=== PATIENT | male | born 1935 | race Caucasian/White ===

== ENCOUNTER 2019-12-13 13:14 | Inpatient (IN) | payer OTHER, MEDICAID ==
[~2019-12-13] VITALS: Ht 162.6 cm; Wt 102.1 kg
[~2019-12-13 13:14] MED LIST: AMIO200T PO; ASPI-1155 PO; BENZ-16 PO; DICL50TA9 PO; FURO-149 PO; GABA-531 PO; GLIP5TAB13 PO; HYDR-3908 PO; LANS30CA53 PO; LOVA40TA75 PO; LUBI24CA5 PO; MECL25TA3 PO; METF-379 PO; METO50TA7 PO; PROP1TAB3 PO; VALS160T2 PO
[2019-12-13 14:12] VITALS: BP_SYST 133
--- NOTE | 2019-12-13 14:25 | NUR ---
Patient triaged and placed in waiting room. VSS and patient appears in no acute distress at this time. Accompanied by daughter and grandson, awaiting available bed, and MD notified of need for MSE.
[2019-12-13 15:05] LABS: BASOPHILS % (AUTO) 0.4 % (0.0-2.0); EOSINOPHILS # (AUTO) 0.2 K/uL (0.0-0.4); EOSINOPHILS % (AUTO) 3.1 % (0.0-4.0); HEMATOCRIT 41.1 % (36-54); HEMOGLOBIN 13.8 g/dL (14.0-18.0); LYMPHOCYTES # (AUTO) 1.9 K/uL (1.0-5.5); LYMPHOCYTES % (AUTO) 29.1 % (20.5-51.5); MEAN CORPUSCULAR HEMOGLOBIN 31 pg (27-31); MEAN CORPUSCULAR HGB CONC 34 % (32-36); MEAN CORPUSCULAR VOLUME 91 fL (79.0-98.0); MONOCYTES # (AUTO) 0.5 K/uL (0.0-1.0); MONOCYTES % (AUTO) 8.2 % (1.7-9.3); NEUTROPHILS # (AUTO) 3.9 K/uL (1.8-7.7); NEUTROPHILS % (AUTO) 59.2 % (40.0-70.0); PLATELET COUNT (AUTO) 82 K/uL (130-430); RED BLOOD CELL COUNT(AUTO) 4.52 MIL/uL (4.2-6.2); RED CELL DISTRIBUTION WIDTH 13.3 % (9.0-15.0); WHITE BLOOD COUNT (AUTO) 6.7 K/uL (4.8-10.8)
[2019-12-13 15:18] LABS: ANION GAP 7 (5-15); CALCIUM 8.9 mg/dL (8.4-11.0); CHLORIDE 101 mmol/L (98-107); CREATININE 0.91 mg/dL (0.55-1.30); GLUCOSE 134 mg/dL (70-99); POTASSIUM 4.3 mmol/L (3.5-5.1); SODIUM SERUM 135 mmol/L (136-145); UREA NITROGEN, BLOOD 21 mg/dL (8-21)
[2019-12-13 15:24] LABS: INR 1.1 (0.80-1.20); PROTHROMBIN TIME 10.9 SECS (9.5-12.5)
[2019-12-13 15:33] LABS: ALANINE AMINOTRANSFERASE 22 U/L (12-78); ALBUMIN 3.5 g/dL (3.4-4.8); ASPARTATE AMINOTRANSFERASE 30 U/L (10-37); TOTAL BILIRUBIN 0.6 mg/dL (0.0-1.0)
--- NOTE | 2019-12-13 18:27 | NUR ---
Patient to ER bed 03 to gown for evaluation. Side rails up. Report given to MILADY Robbins
--- NOTE | 2019-12-13 18:30 | NUR ---
Patient arrived in the ED c/o GENERALIZED WEAKNESS AND HYPOTENSION that started yesterday. Denied any chest pain or shortness of breath. Denied any fevers, chills, vomiting or nausea. Patient is alert and oriented x3, respirations even and unlabored, speaking in full sentences and ambulating using a walker. VSS, pain level 5/10. Son at bedside. Informed of the approximate wait time. Instructed to notify ED staff for any changes in condition or worsening of symptoms while waiting to be seen by a provider. Patient verbalized understanding.
[2019-12-13] MEDS ORDERED: NACL 0.9% 500 ML IV ONE (18:45)
--- NOTE | 2019-12-13 19:01 | NUR ---
ER at bedside examining patient.
--- NOTE | 2019-12-13 19:15 | NUR ---
# 20 gauge angiocath placed to LFA. Use of asceptic technique. Opsite placed over site. Blood return noted. Flushed with 10 cc of normal saline. No evidence of infiltration noted. Patient tolerated well.
[2019-12-13 19:17] LABS: BILIRUBIN,URINE NEGATIVE (NEGATIVE); BLOOD, URINE NEGATIVE (NEGATIVE); CLARITY/URINE CLEAR (CLEAR); COLOR,URINE YELLOW (YELLOW); GLUCOSE,URINE NEGATIVE (NEGATIVE); KETONES,URINE NEGATIVE (NEGATIVE); LEUKOCYTE ESTERASE ,URINE NEGATIVE (NEGATIVE); NITRITE, URINE NEGATIVE (NEGATIVE); PROTEIN URINE NEGATIVE (NEGATIVE); UROBILINOGEN,URINE 0.2 (0.2-1.0)
--- NOTE | 2019-12-13 19:30 | NUR ---
Report given and care transferred to MILADY Sykes.
--- NOTE | 2019-12-13 21:07 | NUR ---
Flu swab obtained. Son at bedside informed of current status. Awaiting chest xray results. patient tolerated well. will continue to monitor.
[2019-12-13] MEDS ORDERED: AMPICILLIN SODIUM/SULBACTAM NA 3 GM in NS 100 ML IV ONE (21:45)
[2019-12-13] MEDS ORDERED: AZITHROMYCIN 500 MG in NS 250 ML IV ONE (21:45)
[2019-12-13] MEDS ORDERED: RESEYE EACH EYE (21:59)
[2019-12-13] MEDS ORDERED: TAMS0.4C96 PO (21:59)
[2019-12-13] MEDS ORDERED: SER25 PO (21:59)
[2019-12-13] MEDS ORDERED: CHOL500037 PO (21:59)
[2019-12-13] MEDS ORDERED: TURM500C9 PO (21:59)
[2019-12-13] MEDS ORDERED: ACET-2634 PO (21:59)
[2019-12-13] MEDS ORDERED: LUBI24CA5 PO ×2 (21:59→22:18)
[2019-12-13] MEDS ORDERED: SIMV40TA2 PO (21:59)
[2019-12-13] MEDS ORDERED: PRO40 PO (21:59)
[2019-12-13] MEDS ORDERED: CYAN250010 PO (21:59)
[2019-12-13] MEDS ORDERED: potassium chloride PO (22:02)
[2019-12-13] MEDS ORDERED: GLUC-236 PO (22:14)
[2019-12-13] MEDS ORDERED: CLOP75TA32 PO (22:14)
[2019-12-13] MEDS ORDERED: MEMA1CAP3 PO (22:14)
[2019-12-13] MEDS ORDERED: FOLI-59 PO (22:14)
[2019-12-13] MEDS ORDERED: lidocaine 5% Patch TD (22:14)
[2019-12-13] MEDS ORDERED: CARB30DR OP (22:18)
[2019-12-13] MEDS ORDERED: DICL100G19 TP (22:18)
[2019-12-13] MEDS ORDERED: OMEG1CAP PO (22:18)
[2019-12-13] MEDS ORDERED: FINA5TAB3 PO (22:18)
--- NOTE | 2019-12-13 22:21 | NUR ---
Medication reconciliation completed with information provided by son. Any prior medication reconciliation on file was reviewed and corrected.
[2019-12-13] MEDS ORDERED: AZITHROMYCIN 500 MG/VIAL (ZITHROMAX) IV ONE (22:40)
[2019-12-13] MEDS ORDERED: AMPICILLIN SODIUM/SULBACTAM NA 3 GM VIAL ONE (22:40)
--- NOTE | 2019-12-13 22:42 | NUR ---
Medicated per MD orders. Patient tolerated well
--- NOTE | 2019-12-13 22:43 | NUR ---
Son states patient is full code
--- NOTE | 2019-12-13 22:47 | NUR ---
Patient will be admitted to care of Dr. Mock. Admitted to Telemetry unit. Will go to room 125 A. Belongings list completed. Complete and up to date summary report printed. SBAR report to be given at bedside with opportunity for questions.
--- NOTE | 2019-12-13 23:19 | NUR ---
Transfer to Telemetry via ACLS protocol. Licensed nurse present. IV present no signs or symptoms of infiltration.
--- NOTE | 2019-12-13 23:30 | NUR ---
ADMIT NOTE Received pt from ER to the floor with a diagnosis of PNEUMONIA. Admission process initiated. Patient oriented to pain management, safety and call light-teach back done.
[2019-12-13 23:42] VITALS: BP_SYST 115
[2019-12-13 23:44] VITALS: BP_SYST 124
--- NOTE | 2019-12-13 23:44 | NUR ---
Daughter visiting Son is leaving. Daughter and grandson arrived and they will be translating for patient, he speaks Bel[place]ian.
--- NOTE | 2019-12-14 00:30 | NUR ---
Assessment Assessment complete, patient provided with water and pudding, his family brought him a baked potato. Posted sign at head of bed indicating "LIME".
--- NOTE | 2019-12-14 01:55 | NUR ---
CPAP Patient presently on CPAP, daughter stepped outside to the parking lot. Safety precautions in place and call light w/in reach.
--- NOTE | 2019-12-14 04:30 | NUR ---
RN rounds daughter remains at bedside. Patient sleeps on/off. No sign of distress, safety precautions in place and call light w/in reach.
[2019-12-14] MEDS ORDERED: ACETAMINOPHEN 500 MG TABLET PO PRN (06:45)
[2019-12-14] MEDS ORDERED: ALBUTEROL SULFATE 0.083% 2.5 MG/3 ML VIAL.NEB INH PRN (06:45)
[2019-12-14] MEDS ORDERED: ACETAMINOPHEN 325 MG TABLET PO PRN (06:45)
--- NOTE | 2019-12-14 06:45 | NUR ---
Dr. Billy Cervantes at bedside making rounds, she spoke w/ daughter.
--- NOTE | 2019-12-14 07:05 | NUR ---
Nutrition Update Last Scale 18 noted. Pt admitted for Pneumonia Diet: [facility] BMI: 39.4 kg/m2 RD to follow per nutrition care standards.
[2019-12-14 07:22] LABS: BASOPHILS % (AUTO) 0.3 % (0.0-2.0); EOSINOPHILS # (AUTO) 0.2 K/uL (0.0-0.4); EOSINOPHILS % (AUTO) 3.2 % (0.0-4.0); HEMATOCRIT 37.3 % (36-54); HEMOGLOBIN 12.7 g/dL (14.0-18.0); LYMPHOCYTES % (AUTO) 31.7 % (20.5-51.5); MEAN CORPUSCULAR HEMOGLOBIN 31 pg (27-31); MEAN CORPUSCULAR HGB CONC 34 % (32-36); MEAN CORPUSCULAR VOLUME 91 fL (79.0-98.0); MONOCYTES # (AUTO) 0.6 K/uL (0.0-1.0); MONOCYTES % (AUTO) 9.9 % (1.7-9.3); NEUTROPHILS # (AUTO) 3.4 K/uL (1.8-7.7); NEUTROPHILS % (AUTO) 54.9 % (40.0-70.0); RED BLOOD CELL COUNT(AUTO) 4.12 MIL/uL (4.2-6.2); RED CELL DISTRIBUTION WIDTH 13.6 % (9.0-15.0); WHITE BLOOD COUNT (AUTO) 6.2 K/uL (4.8-10.8)
--- NOTE | 2019-12-14 07:35 | NUR ---
closing note Endorsed report to MILADY Giron. Patient is stable, no s/sx of distress. Daughter is at bedside.
[2019-12-14 07:36] LABS: ALANINE AMINOTRANSFERASE 14 U/L (12-78); ALBUMIN 3.1 g/dL (3.4-4.8); ANION GAP 6 (5-15); ASPARTATE AMINOTRANSFERASE 24 U/L (10-37); CALCIUM 8.4 mg/dL (8.4-11.0); CHLORIDE 105 mmol/L (98-107); CREATININE 0.83 mg/dL (0.55-1.30); GLUCOSE 89 mg/dL (70-99); SODIUM SERUM 138 mmol/L (136-145); TOTAL BILIRUBIN 0.6 mg/dL (0.0-1.0); UREA NITROGEN, BLOOD 17 mg/dL (8-21)
--- NOTE | 2019-12-14 07:40 | NUR ---
OPENING NOTES: RECEIVED PATIENT FROM HAND BRUSH FILLER NURSE. PATIENT IS ASLEEP LAYING DOWN IN BED. FAMILY AT BEDSIDE. PATIENT IS TOLERATING OXYGEN AT ROOM AIR WITH NO SIGNS OF DISTRESS OR SHORTNESS OF BREATH NOTED. IV SITE IS PATENT WITH NO SIGNS OF INFILTRATION NOTED. PATIENT IN STABLE CONDITION. SAFETY, FALL AND ASPIRATION PRECAUTIONS ARE IN PLACE. BED IS LOCKED IN LOWEST POSITION WITH CALL LIGHT IN REACH. WILL CONTINUE TO MONITOR PATIENT FOR ANY CHANGES.
[2019-12-14 08:00] VITALS: BP_SYST 116
[2019-12-14] MEDS: cefTRIAXone 1 GM IVPB PREMIX 50 ML IV SCH (08:16)
[2019-12-14 08:51] LABS: PLATELET COUNT (AUTO) 79 K/uL (130-430)
[2019-12-14] MEDS: LUBIPROSTONE 24 MCG CAPSULE PO SCH ×2 (09:00→21:04)
[2019-12-14] MEDS ORDERED: LUBIPROSTONE 24 MCG CAPSULE PO SCH (09:00)
[2019-12-14] MEDS ORDERED: ENOXAPARIN SODIUM 40 MG/0.4 ML SYRINGE SUBCUT SCH (09:00)
[2019-12-14] MEDS: AZITHROMYCIN 500 MG in NS 250 ML IV SCH (09:03)
[2019-12-14] MEDS: MECLIZINE HCL 25 MG TABLET (ANITVERT) PO SCH ×3 (09:04→21:05)
[2019-12-14] MEDS: FINASTERIDE 5 MG TABLET (PROSCAR) PO SCH (09:04)
[2019-12-14] MEDS: PANTOPRAZOLE SODIUM 40 MG TAB PO SCH (09:04)
[2019-12-14] MEDS: QUEtiapine FUMARATE 25 MG TABLET PO SCH (09:05)
[2019-12-14] MEDS: SIMVASTATIN 40 MG TABLET PO SCH (09:07)
[2019-12-14] MEDS: CLOPIDOGREL BISULFATE 75 MG TABLET PO SCH (09:09)
[2019-12-14] MEDS: TAMSULOSIN HCL 0.4 MG CAP PO SCH (09:10)
[2019-12-14] MEDS: FUROSEMIDE 40 MG TABLET PO SCH (09:10)
[2019-12-14] MEDS: GABAPENTIN 300 MG CAPSULE PO SCH ×3 (09:10→21:04)
[2019-12-14] MEDS: cycloSPORINE 0.05%, 0.4 ML OPHTHALMIC EMULSION DROPERETTE OP SCH ×2 (09:11→21:07)
--- NOTE | 2019-12-14 10:15 | NUR ---
RN ROUNDS: PATIENT IS AWAKE AND ALERT x3 LAYING DOWN IN BED. NO SIGNS OF DISTRESS OR SHORTNESS OF BREATH NOTED. FAMILY AT BEDSIDE. PATIENT IN STABLE CONDITION. WILL CONTINUE TO MONITOR PATIENT FOR ANY CHANGES.
[2019-12-14 12:00] VITALS: BP_SYST 116
--- NOTE | 2019-12-14 12:20 | NUR ---
PAGED: PAGED DR. REILLY REGARDING MEDICATIONS. AWAITING CALL BACK.
--- NOTE | 2019-12-14 12:20 | NUR ---
RN ROUNDS: PATIENT IS AWAKE AND ALERT x3 LAYING DOWN IN BED. FAMILY AT BEDSIDE. PATIENT DENIES ANY PAIN AT THE MOMENT. NO SIGNS OF DISTRESS OR SHORTNESS OF BREATH NOTED. PATIENT IN STABLE CONDITION. WILL CONTINUE TO MONITOR PATIENT FOR ANY CHANGES.
--- NOTE | 2019-12-14 13:42 | NUR ---
SWALLOW EVAL LEFT MESSAGE TO [facility] FOR SWALLOW EVAL.
--- NOTE | 2019-12-14 14:20 | NUR ---
RN ROUNDS: PATIENT IS AWAKE AND ALERT x4 LAYING DOWN IN BED. FAMILY AT BEDSIDE. PATIENT DENIES ANY PAIN AT THE MOMENT. IV SITE IS PATENT WITH NO SIGNS OF INFILTRATION NOTED. PATIENT IN STABLE CONDITION. WILL CONTINUE TO MONITOR PATIENT FOR ANY CHANGES.
--- NOTE | 2019-12-14 16:04 | NUR ---
RN ROUNDS: PATIENT IS ASLEEP LAYING DOWN IN BED. NO SIGNS OF DISTRESS OR SHORTNESS OF BREATH NOTED. PATIENT IN STABLE CONDITION. WILL CONTINUE TO MONITOR PATIENT FOR ANY CHANGES.
[2019-12-14 16:06] VITALS: BP_SYST 110
--- NOTE | 2019-12-14 17:37 | NUR ---
S.T. SWALLOW EVAL SWALLOW EVAL COMPLETED. PT PRESENTS W/ MOD ORAL DYSPHAGIA W/ PROLONGED AND INEFFECTIVE MASTICATION RESULTING IN ORAL RESIDUE FOR MECH SOFT TRIALS. NO S/S OF ASPIRATION. REC: PUREE DIET. THIN LIQUIDS OK. NURSE SERENA NOTIFIED.
--- NOTE | 2019-12-14 18:52 | NUR ---
CLOSING NOTES: PATIENT IS ASLEEP LAYING DOWN IN BED. PATIENT IS TOLERATING OXYGEN AT ROOM AIR WITH NO SIGNS OF DISTRESS OR SHORTNESS OF BREATH NOTED. IV SITE IS PATENT WITH NO SIGNS OF INFILTRATION NOTED. PATIENT IN STABLE CONDITION. SAFETY, FALL AND ASPIRATION PRECAUTIONS REMAINED IN PLACE THROUGHOUT THE SHIFT. BED IS LOCKED IN LOWEST POSITION WITH CALL LIGHT IN REACH. WILL ENDORSE PATIENT CARE TO ONCOMING COMPRESSED AIR PILE DRIVER OPERATOR NURSE.
--- NOTE | 2019-12-14 18:59 | NUR ---
CALLED: DR. REILLY CALLED. I INFORMED HIM IF HE WANTED TO PATIENT TO HAVE ELIQUIS INSTEAD OF LOVENOX DUE TO HIS LOW PLATELETS. HE SAID TO JUST STOP THE LOVENOX. WILL ENDORSE TO BAR ATTENDANT NURSE TO INFORM PHARMACY.
--- NOTE | 2019-12-14 19:45 | NUR ---
Opening Note Received report from dayshift RN, patient is resting in bed, no signs of acute distress, family at bedside, no complaints of pain, even and unlabored breathing on room air, IV to left FA in place and SL, walker at bedside. Safety and fall precautions in place, bed locked and in lowest position, bed alarm on, call light with patient, side rails up, will continue to monitor.
[2019-12-14 20:00] VITALS: BP_SYST 146
--- NOTE | 2019-12-14 21:03 | NUR ---
Blood Sugar Patient's blood sugar is 108. No insulin coverage needed per insulin sliding scale at this time. All safety precautions in place, call light with patient, will continue to monitor.
--- NOTE | 2019-12-14 22:36 | NUR ---
Assisted to Restroom Assisted to restroom and back to bed safely, patient had a BM and reported no difficulty. All safety precautions in place, call light with patient, will continue to monitor.
[2019-12-15] VITALS: BP_SYST 150
--- NOTE | 2019-12-15 00:45 | NUR ---
RN Rounds Patient is resting in bed, no signs of acute distress, eyes closed, even and unlabored breathing on CPAP, IV to left FA in place and SL, walker at bedside. Safety and fall precautions in place, bed locked and in lowest position, bed alarm on, call light with patient, side rails up, will continue to monitor.
--- NOTE | 2019-12-15 02:26 | NUR ---
RN Rounds Patient is resting in bed, eyes closed asleep, no signs of acute distress, tolerating CPAP, IV to left FA in place and SL. Safety and fall precautions in place, call light with patient, will continue to monitor.
--- NOTE | 2019-12-15 04:35 | NUR ---
RN Rounds Patient is resting in bed, eyes closed, no signs of acute distress, tolerating CPAP, IV to left FA in place and SL, walker at bedside. Safety and fall precautions in place, bed locked and in lowest position, bed alarm on, call light with patient, side rails up, will continue to monitor.
[2019-12-15] MEDS: cefTRIAXone 1 GM IVPB PREMIX 50 ML IV SCH (05:21)
[2019-12-15] MEDS: AZITHROMYCIN 500 MG in NS 250 ML IV SCH (06:21)
--- NOTE | 2019-12-15 06:31 | NUR ---
Closing Note Patient is resting in bed, no signs of acute distress, even and unlabored breathing on room air, IV to left FA in place and infusing scheduled antibiotics per MD order, patent/benign, walker at bedside. Safety and fall precautions in place, bed locked and in lowest position, bed alarm on, call light with patient, side rails up, will endorse care to dayshift RN.
[2019-12-15 06:51] LABS: BASOPHILS % (AUTO) 0.2 % (0.0-2.0); EOSINOPHILS # (AUTO) 0.1 K/uL (0.0-0.4); EOSINOPHILS % (AUTO) 1.3 % (0.0-4.0); HEMATOCRIT 40.5 % (36-54); HEMOGLOBIN 13.4 g/dL (14.0-18.0); LYMPHOCYTES # (AUTO) 2.4 K/uL (1.0-5.5); LYMPHOCYTES % (AUTO) 24.4 % (20.5-51.5); MEAN CORPUSCULAR HEMOGLOBIN 30 pg (27-31); MEAN CORPUSCULAR HGB CONC 33 % (32-36); MEAN CORPUSCULAR VOLUME 91 fL (79.0-98.0); MONOCYTES # (AUTO) 0.9 K/uL (0.0-1.0); MONOCYTES % (AUTO) 9.2 % (1.7-9.3); NEUTROPHILS # (AUTO) 6.3 K/uL (1.8-7.7); NEUTROPHILS % (AUTO) 64.9 % (40.0-70.0); PLATELET COUNT (AUTO) 87 K/uL (130-430); RED BLOOD CELL COUNT(AUTO) 4.44 MIL/uL (4.2-6.2); RED CELL DISTRIBUTION WIDTH 13.7 % (9.0-15.0); WHITE BLOOD COUNT (AUTO) 9.7 K/uL (4.8-10.8)
[2019-12-15 07:14] LABS: ALANINE AMINOTRANSFERASE 18 U/L (12-78); ALBUMIN 3.2 g/dL (3.4-4.8); ANION GAP 8 (5-15); ASPARTATE AMINOTRANSFERASE 20 U/L (10-37); CALCIUM 8.6 mg/dL (8.4-11.0); CHLORIDE 100 mmol/L (98-107); CREATININE 1.11 mg/dL (0.55-1.30); GLUCOSE 145 mg/dL (70-99); POTASSIUM 3.6 mmol/L (3.5-5.1); SODIUM SERUM 134 mmol/L (136-145); TOTAL BILIRUBIN 0.7 mg/dL (0.0-1.0); UREA NITROGEN, BLOOD 15 mg/dL (8-21)
--- NOTE | 2019-12-15 07:30 | NUR ---
OPENING NOTES: RECEIVED PATIENT FROM COMMERCIAL CONSTRUCTION PROJECT MANAGER NURSE. PATIENT IS AWAKE AND ALERT x2 LAYING DOWN IN BED. PATIENT DENIES ANY PAIN AT THE MOMENT. PATIENT IS TOLERATING OXYGEN AT ROOM AIR WITH NO SIGNS OF DISTRESS OR SHORTNESS OF BREATH NOTED. IV SITE IS INFILTRATED. IV ANTIBIOTICS STOPPED AND WILL ATTEMPT TO PUT A NEW IV IN. PATIENT IN STABLE CONDITION. SAFETY, FALL AND ASPIRATION PRECAUTIONS ARE IN PLACE. BED IS LOCKED IN LOWEST POSITION WITH CALL LIGHT IN REACH. WILL CONTINUE TO MONITOR PATIENT FOR ANY CHANGES.
[2019-12-15 08:00] VITALS: BP_SYST 131
--- NOTE | 2019-12-15 08:45 | NUR ---
IV INSERTION: IV INFILTRATED. IV CATHETER REMOVED AND INTACT WITH NO ACTIVE BLEEDING NOTED. NEW IV INSERTED IN RIGHT FOREARM 22G. ASEPTIC TECHNIQUE USED. PATIENT TOLERATED IT WELL. SUCCESSFUL AFTER ONE ATTEMPT. IV INTACT WITH NO SIGNS OF INFILTRATION NOTED. WILL CONTINUE TO MONITOR.
[2019-12-15] MEDS: MECLIZINE HCL 25 MG TABLET (ANITVERT) PO SCH ×3 (09:00→20:42)
[2019-12-15] MEDS: LUBIPROSTONE 24 MCG CAPSULE PO SCH ×3 (09:00→20:41)
[2019-12-15] MEDS: QUEtiapine FUMARATE 25 MG TABLET PO SCH (09:00)
[2019-12-15] MEDS: FINASTERIDE 5 MG TABLET (PROSCAR) PO SCH (09:25)
[2019-12-15] MEDS: GABAPENTIN 300 MG CAPSULE PO SCH ×3 (09:25→20:41)
[2019-12-15] MEDS: PANTOPRAZOLE SODIUM 40 MG TAB PO SCH (09:25)
[2019-12-15] MEDS: CLOPIDOGREL BISULFATE 75 MG TABLET PO SCH (09:25)
[2019-12-15] MEDS: FUROSEMIDE 40 MG TABLET PO SCH (09:26)
[2019-12-15] MEDS: SIMVASTATIN 40 MG TABLET PO SCH (09:26)
[2019-12-15] MEDS: TAMSULOSIN HCL 0.4 MG CAP PO SCH (09:27)
[2019-12-15] MEDS: cycloSPORINE 0.05%, 0.4 ML OPHTHALMIC EMULSION DROPERETTE OP SCH ×2 (09:28→20:42)
--- NOTE | 2019-12-15 10:10 | NUR ---
RN ROUNDS: PATIENT IS AWAKE AND ALERT x3 LAYING DOWN IN BED. PATIENT DENIES ANY PAIN AT THE MOMENT. NO SIGNS OF DISTRESS OR SHORTNESS OF BREATH NOTED. PATIENT IN STABLE CONDITION. WILL CONTINUE TO MONITOR PATIENT FOR ANY CHANGES.
[2019-12-15 12:00] VITALS: BP_SYST 115
--- NOTE | 2019-12-15 12:04 | NUR ---
PHYSICAL THERAPY CO-SIGN The Physical Therapy Progress Notes documented by Gift Wrapper have been reviewed. Reviewed/Co-Signed by: Junior Hauser PT Documentation Done by: BOBBY KENDALL PTA Addendum: 12/15/19 at 1205 by Junior Hauser PT Amended: Links added.
--- NOTE | 2019-12-15 12:42 | NUR ---
Pulmo consult called: for Dr. Lewis, regarding pna, ordered by Dr. Mock, spoke with Ni at exchange.
[2019-12-15 16:48] VITALS: BP_SYST 117
--- NOTE | 2019-12-15 18:45 | NUR ---
CLOSING NOTES: PATIENT IS ASLEEP LAYING DOWN IN BED. PATIENT IS TOLERATING OXYGEN AT ROOM AIR WITH NO SIGNS OF DISTRESS OR SHORTNESS OF BREATH NOTED. IV SITE IS PATENT WITH NO SIGNS OF INFILTRATION NOTED. PATIENT IN STABLE CONDITION. SAFETY, FALL AND ASPIRATION PRECAUTIONS REMAINED IN PLACE THROUGHOUT THE SHIFT. BED IS LOCKED IN LOWEST POSITION WITH CALL LIGHT IN REACH. WILL ENDORSE PATIENT CARE TO ONCOMING WILL CALL CLERK NURSE.
--- NOTE | 2019-12-15 19:35 | NUR ---
Opening notes Received report. Patient is resting in bed, no signs of distress noted. Breathing even and unlabored. IV patent and intact, no signs of infiltration noted. No needs at this time. Son is at bedside. Call light with the patient. Safety precautions in place.
[2019-12-15 20:00] VITALS: BP_SYST 125
--- NOTE | 2019-12-15 21:00 | NUR ---
Medications given. Accucheck 130. No insulin coverage necessary. Educated the action and side effects of medications. Patient verbalized understanding and tolerated well. Patient ambulated with walker. complete linen change done. Patient back in bed. No other needs. Call light with the patient. Safety precautions in place.
--- NOTE | 2019-12-15 23:05 | NUR ---
Sleeping Patient sleeping with CPAP mask on. No signs of distress noted. Breathing even and unlabored. No needs. Call light with the patient. Safety precautions in place.
[2019-12-16] VITALS: BP_SYST 131
--- NOTE | 2019-12-16 01:00 | NUR ---
Sleeping Patient sleeping. VSS. No signs of distress noted. Breathing even and unlabored. No needs. Call light with the patient. Safety precautions in place.
--- NOTE | 2019-12-16 03:22 | NUR ---
Sleeping No signs of distress noted. Breathing even and unlabored. Call light with the patient. Safety precautions in place.
--- NOTE | 2019-12-16 04:24 | NUR ---
Sleeping No signs of distress noted. Breathing even and unlabored. Call light with the patient. Safety precautions in place.
[2019-12-16] MEDS: cefTRIAXone 1 GM IVPB PREMIX 50 ML IV SCH (05:42)
--- NOTE | 2019-12-16 06:56 | NUR ---
Closing notes Patient is resting in bed, upset that no one checked on all night. Informed patient that I checked on him every hour, and that patient slept throughout night. Patient complaining he has no water, despite a full water pitcher within reach of patient. Patient initially refused to have IV ABX connected, but is now okay to have ABX after explaining multiple times. Call light with the patient. Safety precautions in place. Will endorse care to day shift RN.
--- NOTE | 2019-12-16 07:25 | NUR ---
OPENING NOTE Patient resting in the bed. No acute distress. Denied of pain. Skin warm and dry to touch. IV intact to RFA, no redness, no swelling, patent. Discussed the safety issue, use call light when needs help, and plan of care, verbally understanding. Safety measure maintained. Call light within reached. Bed locked in low position, side rails up, bed alarm on. Will continue to monitor.
[2019-12-16 07:50] VITALS: BP_SYST 128
[2019-12-16] MEDS: AZITHROMYCIN 500 MG in NS 250 ML IV SCH (07:59)
[2019-12-16] MEDS: MECLIZINE HCL 25 MG TABLET (ANITVERT) PO SCH (08:39)
[2019-12-16] MEDS: LUBIPROSTONE 24 MCG CAPSULE PO SCH (08:39)
[2019-12-16] MEDS: SIMVASTATIN 40 MG TABLET PO SCH (08:39)
[2019-12-16] MEDS: QUEtiapine FUMARATE 25 MG TABLET PO SCH (08:39)
[2019-12-16] MEDS: GABAPENTIN 300 MG CAPSULE PO SCH (08:40)
[2019-12-16] MEDS: TAMSULOSIN HCL 0.4 MG CAP PO SCH (08:40)
[2019-12-16] MEDS: FUROSEMIDE 40 MG TABLET PO SCH (08:40)
[2019-12-16] MEDS: FINASTERIDE 5 MG TABLET (PROSCAR) PO SCH (08:40)
[2019-12-16] MEDS: PANTOPRAZOLE SODIUM 40 MG TAB PO SCH (08:40)
[2019-12-16] MEDS: CLOPIDOGREL BISULFATE 75 MG TABLET PO SCH (08:40)
[2019-12-16] MEDS: cycloSPORINE 0.05%, 0.4 ML OPHTHALMIC EMULSION DROPERETTE OP SCH (08:41)
--- NOTE | 2019-12-16 08:42 | NUR ---
AM SCHEDULE MED GIVEN. TOLERATED WELL.
[2019-12-16] MEDS ORDERED: AMOX-426 PO (10:46)
--- NOTE | 2019-12-16 10:56 | NUR ---
SEEN AND EXAMINED BY MEGHANN ALCOCER WITH ORDER RECEIVED.
--- NOTE | 2019-12-16 11:48 | NUR ---
AMBULATED BY USING FWW Per Dr. Mock, ambulated the patient using FWW to make sure the patient able to ambulate and using walker before discharge. Patient ambulated using walker with supervision, needs minimum assistance when get up of bed. Assisted back to bed. No acute distress. Safety measure maintained. Kerwin light within reached. Bed locked in low position, side rails up, bed alarm on. Continue to monitor.
[2019-12-16 12:04] VITALS: BP_SYST 124
--- NOTE | 2019-12-16 12:55 | NUR ---
CALLED THE PATIENT'S DAUGHTER CRISTINA Jay Informed the discharge home ordered, will picket labor [employer] the patient around 3pm. Per Cristina, the patient has been follow up with CHF with Zenaida Bhat. Will call Dr. Bhat for follow up appointment.
[2019-12-16 13:53] VITALS: BP_SYST 124
--- NOTE | 2019-12-16 14:48 | NUR ---
SET UP A POST OP DISCHARGE CHF APPOINTMENT WITH AIRPORT SKILLED MAINTENANCE SUPERVISOR DR LIVINGSTON FOR DEC 23 2019 AT 0900. SPOKE TO MAX. FAMILY INFORMED OF THE APPOINTMENT.
--- NOTE | 2019-12-16 15:29 | NUR ---
CONFIRMED THE E-PRESCRIPTION Called [facility], confirmed the antibiotic- Augmentin ready to warehouse traffic supervisor by cristina Bowers. Informed to the patient's .
--- NOTE | 2019-12-16 15:45 | NUR ---
D/C Patient Patient given medication reconciliation form and D/C instructions. Exit Care provided. Patient verbalized understanding. MD discussed with patient the results and treatment provided. Ambulatory with steady gait for discharge to home. Patient in stable condition, ID band removed. IV catheter removed, intact and dressing applied, no active bleeding. E-prescription confirmed with [facility]. Patient educated on pain management. All belongings sent with patient.
--- NOTE | 2019-12-21 14:08 | NUR ---
Discharge Follow Up Phone Call Phoned patient, , and spoke with patient's . She stated that patient is improving. They filled his prescriptions and patient is taking his medications as directed. Patient has been having black stools since returning home, but they believe it to be from the food and medication. Patient's son is a nurse and he wasn't concerned. Suggested they discuss with outsole beveler Dr Baker at follow up appointment on 12/23/19 9am. Also suggested they schedule an appointment with PCP. No other questions or concerns.
== END 2019-12-16 15:45 | disposition home or self-care (01) | DRG 291 ==
LOC: SED 13:14 → STU 22:45
PROVIDERS: ADMIT Internal Medicine Hospice and Palliative Medicine; ATTEND Internal Medicine Hospice and Palliative Medicine
PROC: 5A09357 Assistance with Respiratory Ventilation, Less than 24 Consecutive Hours, Continuous Positive Airway Pressure (ICD-10-PCS; principal; 2019-12-14)
PROC: 5A09357 Assistance with Respiratory Ventilation, Less than 24 Consecutive Hours, Continuous Positive Airway Pressure (ICD-10-PCS; 2019-12-15)
DX: I11.0 Hypertensive heart disease with heart failure (principal); J11.00 Influenza due to unidentified influenza virus with unspecified type of pneumonia; E44.1 Mild protein-calorie malnutrition; I50.33 Acute on chronic diastolic (congestive) heart failure; E78.5 Hyperlipidemia, unspecified; G47.33 Obstructive sleep apnea (adult) (pediatric); G30.9 Alzheimer's disease, unspecified; F02.80 Dementia in other diseases classified elsewhere, unspecified severity, without behavioral disturbance, psychotic disturbance, mood disturbance, and anxiety; E11.40 Type 2 diabetes mellitus with diabetic neuropathy, unspecified; I25.10 Atherosclerotic heart disease of native coronary artery without angina pectoris; N40.0 Benign prostatic hyperplasia without lower urinary tract symptoms; Z83.3 Family history of diabetes mellitus; Z86.73 Personal history of transient ischemic attack (TIA), and cerebral infarction without residual deficits; Z87.891 Personal history of nicotine dependence; Z95.1 Presence of aortocoronary bypass graft; Z79.899 Other long term (current) drug therapy; Z68.38 Body mass index [BMI] 38.0-38.9, adult
CPT/HCPCS: 36415; 71045; 80053; 81003; 82962; 83036; 83605; 83880; 84484; 85025; 85379; 85610-TC; 85730-TC; 86710; 87040-TC; 87086; 92610-GN; 93005; 93306; 94660; 94760; 96361; 96365; 96367; 97110-GP; 97112-GP; 97116-GP; 97530-GP; 99285; G0378; J0295; J0456; J0696; J7050; J8597

== ENCOUNTER 2021-12-20 16:43 | Emergency (ER) | payer OTHER, MEDICAID ==
[~2021-12-20] VITALS: Ht 162.6 cm; Wt 102.1 kg
[~2021-12-20 16:43] MED LIST changes: +ACET-2634 PO; -AMIO200T PO; +AMOX-426 PO; -ASPI-1155 PO; -BENZ-16 PO; +CARB30DR OP; +CHOL500037 PO; +CLOP75TA32 PO; +CYAN250010 PO; +DICL100G19 TP; -DICL50TA9 PO; +FINA5TAB3 PO; +FOLI-59 PO; -GLIP5TAB13 PO; +GLUC-236 PO; -HYDR-3908 PO; -LANS30CA53 PO; -LOVA40TA75 PO; +MEMA1CAP3 PO; -METF-379 PO; -METO50TA7 PO; +OMEG1CAP PO; +PRO40 PO; -PROP1TAB3 PO; +RESEYE EACH EYE; +SER25 PO; +SIMV40TA2 PO; +TAMS0.4C96 PO; +TURM500C9 PO; -VALS160T2 PO; +lidocaine 5% Patch TD; +potassium chloride PO
[2021-12-20 16:49] VITALS: BP_SYST 109
--- NOTE | 2021-12-20 18:30 | NUR ---
Pt brought by Kal mosley&Ox4, pt presents to ER with R hip/ R thigh/ R leg pain for couple weeks, denies recent trauma, skin pink and warm, cap refill <3, VSS, respirations even and unlabored.
--- NOTE | 2021-12-20 18:51 | NUR ---
Dr Hudson evaluating patient in the triage room
[2021-12-20] MEDS ORDERED: HYDROcodone/ACETAMIN 5-325 MG TAB (NORCO/ VICODIN) PO ONE (21:30)
[2021-12-20 23:30] VITALS: BP_SYST 108
--- NOTE | 2021-12-20 23:30 | NUR ---
Patient/family given written and verbal discharge instructions and verbalizes understanding. ER MD discussed with family the results and treatment provided. Patient in stable condition. No Rx given. Patient educated on pain management and to follow up with PMD. Pain Scale 2/10. Opportunity for questions provided and answered. X-ray disc given to family.
== END 2021-12-20 23:30 | disposition home or self-care (01) ==
LOC: SED 16:43
DX: M25.551 Pain in right hip (principal); M25.561 Pain in right knee; M25.562 Pain in left knee; I10 Essential (primary) hypertension; E11.9 Type 2 diabetes mellitus without complications; Z79.899 Other long term (current) drug therapy
CPT/HCPCS: 73502; 99284

== ENCOUNTER 2023-06-01 14:23 | Inpatient (IN) | payer OTHER, MEDICAID ==
[~2023-06-01] VITALS: Ht 162.6 cm; Wt 87.5 kg
[2023-06-01 14:23] VITALS: BP_SYST 122; PULSE 86; RESP 19; TEMP 98.2; O2SAT 97
[~2023-06-01 14:23] MED LIST changes: +SIMV-345 PO; -SIMV40TA2 PO
[2023-06-01 15:13] LABS: BASOPHILS % (AUTO) 0.5 % (0.0-2.0); EOSINOPHILS % (AUTO) 0.2 % (0.0-4.0); LYMPHOCYTES # (AUTO) 1.5 K/uL (1.0-5.5); MEAN CORPUSCULAR HEMOGLOBIN 20 pg (27-31); MEAN CORPUSCULAR HGB CONC 29 % (32-36); MEAN CORPUSCULAR VOLUME 68 fL (79.0-98.0); MONOCYTES # (AUTO) 0.8 K/uL (0.0-1.0); MONOCYTES % (AUTO) 10.9 % (1.7-9.3); NEUTROPHILS # (AUTO) 4.7 K/uL (1.8-7.7); NEUTROPHILS % (AUTO) 67.4 % (40.0-70.0); PLATELET COUNT (AUTO) 121 K/uL (130-430); RED BLOOD CELL COUNT(AUTO) 2.16 MIL/uL (4.2-6.2); RED CELL DISTRIBUTION WIDTH 18.3 % (9.0-15.0)
[2023-06-01 15:22] LABS: HEMOGLOBIN 4.3 g/dL (14.0-18.0)
[2023-06-01 15:23] LABS: HEMATOCRIT 14.8 % (36-54)
[2023-06-01 15:25] LABS: INR 1.6 (0.80-1.20); PROTHROMBIN TIME 16.2 SECS (9.5-12.5)
[2023-06-01 15:39] LABS: ANION GAP 11 (5-15); ANISOCYTOSIS 1+; CALCIUM 7.9 mg/dL (8.4-11.0); CARBON DIOXIDE 27 mmol/L (23-29); CHLORIDE 105 mmol/L (98-107); CREATININE 1.22 mg/dL (0.55-1.30); GLUCOSE 122 mg/dL (74-106); HYPOCHROMASIA 1+; OVALOCYTES FEW; POTASSIUM 4.2 mmol/L (3.5-5.1); SODIUM SERUM 143 mmol/L (136-145); UREA NITROGEN, BLOOD 21 mg/dL (8-21)
[2023-06-01 15:47] LABS: ALANINE AMINOTRANSFERASE 8 U/L (12-78); ALBUMIN 2.7 g/dL (3.4-4.8); ASPARTATE AMINOTRANSFERASE 18 U/L (10-37); CREATINE KINASE, TOTAL 70 U/L (39-308); FREE T4 (FREE THYROXINE) 1.1 ng/dL (0.6-1.6); THYROID STIMULATING HORMONE 1.56 uIu/mL (0.34-4.82); TOTAL BILIRUBIN 0.6 mg/dL (0.0-1.0); TOTAL PROTEIN, SERUM 5.8 g/dL (6.4-8.3)
[2023-06-01 16:13] LABS: ACETONE, SERUM NEGATIVE (NEGATIVE)
[2023-06-01 18:43] LABS: BILIRUBIN,URINE NEGATIVE (NEGATIVE); BLOOD, URINE NEGATIVE (NEGATIVE); CLARITY/URINE CLEAR (CLEAR); COLOR,URINE YELLOW (YELLOW); GLUCOSE,URINE NEGATIVE (NEGATIVE); KETONES,URINE NEGATIVE (NEGATIVE); LEUKOCYTE ESTERASE ,URINE NEGATIVE (NEGATIVE); NITRITE, URINE NEGATIVE (NEGATIVE); PH,URINE 7.5 (5.0-8.0); PROTEIN URINE NEGATIVE (NEGATIVE); UROBILINOGEN,URINE 0.2 (0.2-1.0)
[2023-06-01 21:05] VITALS: BP_SYST 100; PULSE 93; RESP 18; TEMP 97.2
[2023-06-01] MEDS ORDERED: HYDROcodone/ACETAMIN 5-325 MG TAB (NORCO/ VICODIN) PO PRN (22:45)
[2023-06-01] MEDS ORDERED: ONDANSETRON HCL 4 MG/2 ML VIAL IVP PRN (22:45)
[2023-06-01] MEDS ORDERED: DICLOFENAC SODIUM 1% TP PRN (22:45)
[2023-06-01] MEDS ORDERED: ACETAMINOPHEN 500 MG TABLET PO PRN (22:45)
[2023-06-01] MEDS ORDERED: NALOXONE HCL 0.4 MG/ML AMP (NARCAN) IVP PRN ×2 (22:45)
[2023-06-01] MEDS ORDERED: HYDROcodone/ACETAMIN 10-325 MG TAB PO PRN (22:45)
[2023-06-01] MEDS ORDERED: ACETAMINOPHEN 325 MG TABLET PO PRN (22:45)
[2023-06-02 00:19] VITALS: BP_SYST 99; PULSE 83; RESP 18; TEMP 98.2; O2SAT 90
[2023-06-02] MEDS ORDERED: VITD2000 PO (06:42)
[2023-06-02 06:45] LABS: BASOPHILS % (AUTO) 0.6 % (0.0-2.0); EOSINOPHILS % (AUTO) 0.4 % (0.0-4.0); LYMPHOCYTES # (AUTO) 1.3 K/uL (1.0-5.5); MEAN CORPUSCULAR HEMOGLOBIN 23 pg (27-31); MEAN CORPUSCULAR HGB CONC 31 % (32-36); MEAN CORPUSCULAR VOLUME 73 fL (79.0-98.0); MONOCYTES # (AUTO) 0.8 K/uL (0.0-1.0); MONOCYTES % (AUTO) 11.6 % (1.7-9.3); NEUTROPHILS # (AUTO) 4.8 K/uL (1.8-7.7); NEUTROPHILS % (AUTO) 68.4 % (40.0-70.0); PLATELET COUNT (AUTO) 108 K/uL (130-430); RED BLOOD CELL COUNT(AUTO) 2.91 MIL/uL (4.2-6.2); RED CELL DISTRIBUTION WIDTH 20.8 % (9.0-15.0)
[2023-06-02 07:01] LABS: HEMATOCRIT 21.3 % (36-54); HEMOGLOBIN 6.6 g/dL (14.0-18.0)
[2023-06-02 07:12] LABS: ALANINE AMINOTRANSFERASE 6 U/L (12-78); ALBUMIN 2.4 g/dL (3.4-4.8); ANION GAP 8 (5-15); ASPARTATE AMINOTRANSFERASE 19 U/L (10-37); CALCIUM 7.5 mg/dL (8.4-11.0); CARBON DIOXIDE 28 mmol/L (23-29); CHLORIDE 107 mmol/L (98-107); CREATININE 1.06 mg/dL (0.55-1.30); GLUCOSE 112 mg/dL (74-106); PHOSPHORUS 3.1 mg/dL (2.7-4.5); POTASSIUM 3.8 mmol/L (3.5-5.1); SODIUM SERUM 143 mmol/L (136-145); TOTAL BILIRUBIN 1.2 mg/dL (0.0-1.0); TOTAL PROTEIN, SERUM 5.2 g/dL (6.4-8.3); UREA NITROGEN, BLOOD 23 mg/dL (8-21)
[2023-06-02] MEDS ORDERED: ACETAMINOPHEN 325 MG TABLET PO PRN (07:30)
[2023-06-02 08:00] VITALS: BP_SYST 118; PULSE 65; RESP 14; TEMP 96; O2SAT 96
[2023-06-02] MEDS: CHOLECALCIFEROL (VITAMIN D3) 2,000 UNIT TABLET PO SCH (08:29)
[2023-06-02] MEDS: FUROSEMIDE 40 MG TABLET PO SCH (08:29)
[2023-06-02] MEDS: PANTOPRAZOLE SODIUM 40 MG TAB PO SCH (08:29)
[2023-06-02] MEDS: MULTIVITS,CA,MINERALS/IRON/FA 1 TABLET PO SCH (08:29)
[2023-06-02] MEDS: MECLIZINE HCL 25 MG TABLET (ANITVERT) PO SCH ×3 (08:29→20:51)
[2023-06-02] MEDS: TAMSULOSIN HCL 0.4 MG CAP PO SCH (08:30)
[2023-06-02] MEDS: LUBIPROSTONE 24 MCG CAPSULE PO SCH ×2 (08:30→20:51)
[2023-06-02] MEDS: CYANOCOBALAMIN (VITAMIN B-12) 1,000 MCG TABLET PO SCH (08:30)
[2023-06-02] MEDS: GABAPENTIN 300 MG CAPSULE PO SCH ×3 (08:30→20:51)
[2023-06-02] MEDS: OMEGA-3/DHA/EPA/FISH OIL 1 GM CAPSULE PO SCH ×2 (08:30→20:51)
[2023-06-02] MEDS: FINASTERIDE 5 MG TABLET (PROSCAR) PO SCH (08:30)
[2023-06-02] MEDS ORDERED: MEMANTINE HCL PO SCH (09:00)
[2023-06-02] MEDS ORDERED: DONEPEZIL HCL PO SCH (09:00)
[2023-06-02] MEDS ORDERED: GLUCOSAMINE PO SCH (09:00)
[2023-06-02] MEDS ORDERED: TURMERIC ROOT EXTRACT 500 MG PO SCH (09:00)
[2023-06-02] MEDS ORDERED: BOSWELLIA SERRA PO SCH (09:00)
[2023-06-02] MEDS ORDERED: [UNRECOGNIZED DRUG - OTHER] PO SCH (09:00)
[2023-06-02] MEDS ORDERED: D3 PO SCH (09:00)
[2023-06-02] MEDS: CLOPIDOGREL BISULFATE 75 MG TABLET PO SCH (09:27)
[2023-06-02] MEDS: POTASSIUM CHLORIDE 10 MEQ TAB.PRT.SR PO SCH (09:31)
[2023-06-02] MEDS: cycloSPORINE 0.05%, 0.4 ML OPHTHALMIC EMULSION DROPERETTE OP SCH ×2 (09:34→20:55)
[2023-06-02] MEDS ORDERED: LIDOCAINE PATCH 5% 1 EA TP PRN (10:15)
[2023-06-02 11:30] VITALS: BP_SYST 94; PULSE 88; RESP 19; TEMP 99; O2SAT 96
[2023-06-02] MEDS: PEG 400/HYPROMELLOSE/GLYCERIN 15 ML DROPS OP SCH (14:03)
[2023-06-02 17:30] VITALS: BP_SYST 97; PULSE 83; RESP 19; TEMP 99.3; O2SAT 93
[2023-06-02 20:30] VITALS: BP_SYST 88; PULSE 84; RESP 20; TEMP 98.5; O2SAT 95
[2023-06-02] MEDS: QUEtiapine FUMARATE 25 MG TABLET PO SCH (20:51)
[2023-06-02] MEDS: SIMVASTATIN 40 MG TABLET PO SCH (20:51)
[2023-06-02] MEDS: NORMAL SALINE 5 ML DISP.SYRIN IVF SCH (20:54)
[2023-06-02] MEDS: DONEPEZIL PO SCH (20:55)
[2023-06-02] MEDS: MEMANTINE PO SCH (20:55)
[2023-06-03] VITALS (7 sets, daily range): BP systolic 96–138; PULSE 76–93; RESP 14–20; TEMP 96.9–99.7; O2SAT 95–97
[2023-06-03] MEDS: NORMAL SALINE 5 ML DISP.SYRIN IVF SCH ×3 (05:11→21:35)
[2023-06-03 05:22] LABS: BASOPHILS % (AUTO) 0.4 % (0.0-2.0); EOSINOPHILS # (AUTO) 0.1 K/uL (0.0-0.4); EOSINOPHILS % (AUTO) 1.5 % (0.0-4.0); HEMATOCRIT 27.7 % (36-54); HEMOGLOBIN 8.8 g/dL (14.0-18.0); LYMPHOCYTES # (AUTO) 1.7 K/uL (1.0-5.5); LYMPHOCYTES % (AUTO) 23.4 % (20.5-51.5); MEAN CORPUSCULAR HEMOGLOBIN 24 pg (27-31); MEAN CORPUSCULAR HGB CONC 32 % (32-36); MEAN CORPUSCULAR VOLUME 76 fL (79.0-98.0); MONOCYTES # (AUTO) 0.8 K/uL (0.0-1.0); MONOCYTES % (AUTO) 10.8 % (1.7-9.3); NEUTROPHILS # (AUTO) 4.6 K/uL (1.8-7.7); NEUTROPHILS % (AUTO) 63.9 % (40.0-70.0); PLATELET COUNT (AUTO) 97 K/uL (130-430); RED BLOOD CELL COUNT(AUTO) 3.65 MIL/uL (4.2-6.2); RED CELL DISTRIBUTION WIDTH 20.6 % (9.0-15.0); RETICULOCYTE COUNT 2.2 % (0.5-1.5); WHITE BLOOD COUNT (AUTO) 7.2 K/uL (4.8-10.8)
[2023-06-03 05:37] LABS: ANION GAP 5 (5-15); CALCIUM 7.8 mg/dL (8.4-11.0); CARBON DIOXIDE 28 mmol/L (23-29); CHLORIDE 106 mmol/L (98-107); CREATININE 1.01 mg/dL (0.55-1.30); GLUCOSE 111 mg/dL (74-106); POTASSIUM 3.3 mmol/L (3.5-5.1); SODIUM SERUM 139 mmol/L (136-145); UREA NITROGEN, BLOOD 19 mg/dL (8-21)
[2023-06-03 06:28] LABS: TOTAL IRON BIND. CAPACITY 310 ug/dL (250-450)
[2023-06-03] MEDS: FUROSEMIDE 40 MG TABLET PO SCH (08:55)
[2023-06-03] MEDS: POTASSIUM CHLORIDE 10 MEQ TAB.PRT.SR PO SCH (08:55)
[2023-06-03] MEDS: CHOLECALCIFEROL (VITAMIN D3) 2,000 UNIT TABLET PO SCH (08:56)
[2023-06-03] MEDS: PANTOPRAZOLE SODIUM 40 MG TAB PO SCH (08:56)
[2023-06-03] MEDS: LUBIPROSTONE 24 MCG CAPSULE PO SCH ×2 (08:56→21:32)
[2023-06-03] MEDS: OMEGA-3/DHA/EPA/FISH OIL 1 GM CAPSULE PO SCH ×2 (08:56→21:33)
[2023-06-03] MEDS: TAMSULOSIN HCL 0.4 MG CAP PO SCH (08:56)
[2023-06-03] MEDS: MECLIZINE HCL 25 MG TABLET (ANITVERT) PO SCH ×3 (08:56→21:33)
[2023-06-03] MEDS: MULTIVITS,CA,MINERALS/IRON/FA 1 TABLET PO SCH (08:56)
[2023-06-03] MEDS: GABAPENTIN 300 MG CAPSULE PO SCH ×3 (08:56→21:36)
[2023-06-03] MEDS: FINASTERIDE 5 MG TABLET (PROSCAR) PO SCH (08:56)
[2023-06-03] MEDS: CLOPIDOGREL BISULFATE 75 MG TABLET PO SCH (08:56)
[2023-06-03] MEDS: CYANOCOBALAMIN (VITAMIN B-12) 1,000 MCG TABLET PO SCH (08:57)
[2023-06-03] MEDS: PEG 400/HYPROMELLOSE/GLYCERIN 15 ML DROPS OP SCH (08:57)
[2023-06-03] MEDS: cycloSPORINE 0.05%, 0.4 ML OPHTHALMIC EMULSION DROPERETTE OP SCH ×2 (08:59→21:35)
[2023-06-03] MEDS: MEMANTINE PO SCH ×2 (09:00→21:00)
[2023-06-03] MEDS: DONEPEZIL PO SCH ×2 (09:00→21:00)
[2023-06-03 12:07] LABS: HEPATITIS B CORE AB, TOTAL Negative (Negative); HEPATITIS B SURFACE AG Negative (Negative); HEPATITIS C VIRUS AB Non Reactive (Non Reactive)
[2023-06-03] MEDS ORDERED: POTASSIUM CHLORIDE 20 MEQ TAB.PRT.SR PO ONE (18:45)
[2023-06-03] MEDS: QUEtiapine FUMARATE 25 MG TABLET PO SCH (21:33)
[2023-06-03] MEDS: SIMVASTATIN 40 MG TABLET PO SCH (21:33)
[2023-06-04 00:34] VITALS: BP_SYST 104; PULSE 78; RESP 17; TEMP 98.4; O2SAT 93
[2023-06-04] MEDS: NORMAL SALINE 5 ML DISP.SYRIN IVF SCH ×3 (06:56→22:38)
[2023-06-04 08:00] VITALS: BP_SYST 106; PULSE 80; RESP 18; TEMP 98.3; O2SAT 94
[2023-06-04 08:07] LABS: ALPHA-1-ANTITRYPSIN, S 164 mg/dL (101-187); FERRITIN 16 ng/mL (30-400); FOLATE (FOLIC ACID) 6.2 ng/mL (>3.0); HAPTOGLOBIN 187 mg/dL (38-329)
[2023-06-04 08:09] LABS: BASOPHILS % (AUTO) 0.2 % (0.0-2.0); EOSINOPHILS % (AUTO) 0.3 % (0.0-4.0); HEMATOCRIT 28.6 % (36-54); HEMOGLOBIN 9.2 g/dL (14.0-18.0); LYMPHOCYTES % (AUTO) 19.7 % (20.5-51.5); MEAN CORPUSCULAR HEMOGLOBIN 25 pg (27-31); MEAN CORPUSCULAR HGB CONC 32 % (32-36); MEAN CORPUSCULAR VOLUME 77 fL (79.0-98.0); MONOCYTES # (AUTO) 1.3 K/uL (0.0-1.0); MONOCYTES % (AUTO) 12.8 % (1.7-9.3); NEUTROPHILS # (AUTO) 6.9 K/uL (1.8-7.7); PLATELET COUNT (AUTO) 103 K/uL (130-430); RED BLOOD CELL COUNT(AUTO) 3.73 MIL/uL (4.2-6.2); RED CELL DISTRIBUTION WIDTH 21.2 % (9.0-15.0)
[2023-06-04 08:33] LABS: WHITE BLOOD COUNT (AUTO) 10.3 K/uL (4.8-10.8)
[2023-06-04 09:08] LABS: ALANINE AMINOTRANSFERASE 7 U/L (12-78); ALBUMIN 2.6 g/dL (3.4-4.8); ANION GAP 5 (5-15); ASPARTATE AMINOTRANSFERASE 21 U/L (10-37); CALCIUM 8.1 mg/dL (8.4-11.0); CARBON DIOXIDE 29 mmol/L (23-29); CHLORIDE 107 mmol/L (98-107); CREATININE 1.07 mg/dL (0.55-1.30); GLUCOSE 133 mg/dL (74-106); POTASSIUM 3.8 mmol/L (3.5-5.1); SODIUM SERUM 141 mmol/L (136-145); TOTAL BILIRUBIN 0.9 mg/dL (0.0-1.0); TOTAL PROTEIN, SERUM 5.2 g/dL (6.4-8.3); UREA NITROGEN, BLOOD 22 mg/dL (8-21)
[2023-06-04] MEDS: CHOLECALCIFEROL (VITAMIN D3) 2,000 UNIT TABLET PO SCH (10:35)
[2023-06-04] MEDS: PANTOPRAZOLE SODIUM 40 MG TAB PO SCH (10:35)
[2023-06-04] MEDS: MULTIVITS,CA,MINERALS/IRON/FA 1 TABLET PO SCH (10:35)
[2023-06-04] MEDS: TAMSULOSIN HCL 0.4 MG CAP PO SCH (10:35)
[2023-06-04] MEDS: POTASSIUM CHLORIDE 10 MEQ TAB.PRT.SR PO SCH (10:35)
[2023-06-04] MEDS: OMEGA-3/DHA/EPA/FISH OIL 1 GM CAPSULE PO SCH ×2 (10:36→22:13)
[2023-06-04] MEDS: FUROSEMIDE 40 MG TABLET PO SCH (10:36)
[2023-06-04] MEDS: CYANOCOBALAMIN (VITAMIN B-12) 1,000 MCG TABLET PO SCH (10:36)
[2023-06-04] MEDS: PEG 400/HYPROMELLOSE/GLYCERIN 15 ML DROPS OP SCH (10:37)
[2023-06-04] MEDS: FINASTERIDE 5 MG TABLET (PROSCAR) PO SCH (10:37)
[2023-06-04] MEDS: LUBIPROSTONE 24 MCG CAPSULE PO SCH ×2 (10:38→22:13)
[2023-06-04] MEDS: MECLIZINE HCL 25 MG TABLET (ANITVERT) PO SCH ×3 (10:38→22:13)
[2023-06-04] MEDS: GABAPENTIN 300 MG CAPSULE PO SCH ×3 (10:38→22:13)
[2023-06-04] MEDS: CLOPIDOGREL BISULFATE 75 MG TABLET PO SCH (10:38)
[2023-06-04] MEDS: cycloSPORINE 0.05%, 0.4 ML OPHTHALMIC EMULSION DROPERETTE OP SCH ×2 (10:38→22:18)
[2023-06-04] MEDS: MEMANTINE PO SCH ×2 (10:52→22:19)
[2023-06-04] MEDS: DONEPEZIL PO SCH ×2 (10:52→22:19)
[2023-06-04 11:03] LABS: ANTI NUCLEAR AB WITH REFLEX Positive (Negative)
[2023-06-04 11:30] VITALS: BP_SYST 109; PULSE 84; RESP 19; TEMP 98; O2SAT 96
[2023-06-04] MEDS ORDERED: POLYETHYLENE GLYCOL 3350, 17 GM/ POWD.PACK PO ONE (14:00)
[2023-06-04] MEDS ORDERED: BISACODYL 5 MG TABLET.DR (DULCOLAX) PO ONE (16:00)
[2023-06-04 16:30] VITALS: BP_SYST 112; PULSE 89; RESP 18; TEMP 98.1; O2SAT 95
[2023-06-04] MEDS: POLYETHYLENE GLYCOL 3350, 17 GM/ POWD.PACK PO SCH ×2 (17:00→22:37)
[2023-06-04] MEDS: SOD FERRIC GLUC COMPLEX/SUC 125 MG in NS 100 ML IV SCH (19:27)
[2023-06-04 20:30] VITALS: BP_SYST 106; PULSE 91; RESP 20; TEMP 98.1; O2SAT 95
[2023-06-04 22:00] VITALS: O2SAT 95
[2023-06-04] MEDS: QUEtiapine FUMARATE 25 MG TABLET PO SCH (22:13)
[2023-06-04] MEDS: SIMVASTATIN 40 MG TABLET PO SCH (22:14)
[2023-06-05] VITALS (9 sets, daily range): BP systolic 104–118; PULSE 84–99; RESP 16–20; TEMP 98.2–100.5; O2SAT 91–99
[2023-06-05 06:22] LABS: BASOPHILS % (AUTO) 0.1 % (0.0-2.0); EOSINOPHILS # (AUTO) 0.1 K/uL (0.0-0.4); EOSINOPHILS % (AUTO) 0.6 % (0.0-4.0); HEMATOCRIT 28.1 % (36-54); HEMOGLOBIN 8.6 g/dL (14.0-18.0); LYMPHOCYTES # (AUTO) 1.7 K/uL (1.0-5.5); MEAN CORPUSCULAR HEMOGLOBIN 24 pg (27-31); MEAN CORPUSCULAR HGB CONC 31 % (32-36); MEAN CORPUSCULAR VOLUME 78 fL (79.0-98.0); MONOCYTES # (AUTO) 1.3 K/uL (0.0-1.0); MONOCYTES % (AUTO) 12.3 % (1.7-9.3); NEUTROPHILS # (AUTO) 7.2 K/uL (1.8-7.7); PLATELET COUNT (AUTO) 93 K/uL (130-430); RED CELL DISTRIBUTION WIDTH 22.1 % (9.0-15.0); WHITE BLOOD COUNT (AUTO) 10.3 K/uL (4.8-10.8)
[2023-06-05 06:33] LABS: ANION GAP 6 (5-15); CALCIUM 7.8 mg/dL (8.4-11.0); CARBON DIOXIDE 29 mmol/L (23-29); CHLORIDE 106 mmol/L (98-107); GLUCOSE 125 mg/dL (74-106); POTASSIUM 3.6 mmol/L (3.5-5.1); SODIUM SERUM 141 mmol/L (136-145); UREA NITROGEN, BLOOD 23 mg/dL (8-21)
[2023-06-05] MEDS: LUBIPROSTONE 24 MCG CAPSULE PO SCH ×2 (10:12→22:17)
[2023-06-05] MEDS: CHOLECALCIFEROL (VITAMIN D3) 2,000 UNIT TABLET PO SCH (10:13)
[2023-06-05] MEDS: MULTIVITS,CA,MINERALS/IRON/FA 1 TABLET PO SCH (10:13)
[2023-06-05] MEDS: FINASTERIDE 5 MG TABLET (PROSCAR) PO SCH (10:13)
[2023-06-05] MEDS: POTASSIUM CHLORIDE 10 MEQ TAB.PRT.SR PO SCH (10:13)
[2023-06-05] MEDS: MECLIZINE HCL 25 MG TABLET (ANITVERT) PO SCH ×3 (10:13→22:18)
[2023-06-05] MEDS: FUROSEMIDE 40 MG TABLET PO SCH (10:16)
[2023-06-05] MEDS: TAMSULOSIN HCL 0.4 MG CAP PO SCH (10:16)
[2023-06-05] MEDS: CYANOCOBALAMIN (VITAMIN B-12) 1,000 MCG TABLET PO SCH (10:16)
[2023-06-05] MEDS: GABAPENTIN 300 MG CAPSULE PO SCH ×3 (10:16→22:20)
[2023-06-05] MEDS: POLYETHYLENE GLYCOL 3350, 17 GM/ POWD.PACK PO SCH ×4 (10:16→22:19)
[2023-06-05] MEDS: PANTOPRAZOLE SODIUM 40 MG TAB PO SCH (10:16)
[2023-06-05] MEDS: DONEPEZIL PO SCH ×2 (10:18→22:21)
[2023-06-05] MEDS: MEMANTINE PO SCH ×2 (10:18→22:21)
[2023-06-05] MEDS: OMEGA-3/DHA/EPA/FISH OIL 1 GM CAPSULE PO SCH ×2 (10:19→22:17)
[2023-06-05] MEDS: cycloSPORINE 0.05%, 0.4 ML OPHTHALMIC EMULSION DROPERETTE OP SCH ×2 (10:19→22:19)
[2023-06-05] MEDS: PEG 400/HYPROMELLOSE/GLYCERIN 15 ML DROPS OP SCH (10:24)
[2023-06-05 11:07] LABS: ANTI-SMOOTH MUSCLE AB 5 Units (0-19)
[2023-06-05 12:48] LABS: INR 1.2 (0.80-1.20); PROTHROMBIN TIME 12.3 SECS (9.5-12.5)
[2023-06-05] MEDS: NORMAL SALINE 5 ML DISP.SYRIN IVF SCH ×4 (13:27→22:23)
[2023-06-05] MEDS ORDERED: BISACODYL 5 MG TABLET.DR (DULCOLAX) PO ONE (15:30)
[2023-06-05] MEDS: SOD FERRIC GLUC COMPLEX/SUC 125 MG in NS 100 ML IV SCH (17:17)
[2023-06-05] MEDS ORDERED: GOLYTELY / COLYTE SOLUTION 4 LITERS PO ONE (18:00)
[2023-06-05] MEDS: SIMVASTATIN 40 MG TABLET PO SCH (22:22)
[2023-06-05] MEDS: QUEtiapine FUMARATE 25 MG TABLET PO SCH (22:23)
[2023-06-06] VITALS (8 sets, daily range): BP systolic 98–121; PULSE 70–94; RESP 14–20; TEMP 98.2–99.8; O2SAT 92–97
[2023-06-06 06:59] LABS: BASOPHILS % (AUTO) 0.2 % (0.0-2.0); HEMATOCRIT 28.5 % (36-54); HEMOGLOBIN 8.8 g/dL (14.0-18.0); LYMPHOCYTES # (AUTO) 1.2 K/uL (1.0-5.5); LYMPHOCYTES % (AUTO) 10.4 % (20.5-51.5); MEAN CORPUSCULAR HEMOGLOBIN 24 pg (27-31); MEAN CORPUSCULAR HGB CONC 31 % (32-36); MEAN CORPUSCULAR VOLUME 79 fL (79.0-98.0); MONOCYTES # (AUTO) 1.5 K/uL (0.0-1.0); MONOCYTES % (AUTO) 12.5 % (1.7-9.3); NEUTROPHILS % (AUTO) 76.9 % (40.0-70.0); PLATELET COUNT (AUTO) 88 K/uL (130-430); RED BLOOD CELL COUNT(AUTO) 3.63 MIL/uL (4.2-6.2); RED CELL DISTRIBUTION WIDTH 22.7 % (9.0-15.0); WHITE BLOOD COUNT (AUTO) 11.7 K/uL (4.8-10.8)
[2023-06-06 07:19] LABS: ALANINE AMINOTRANSFERASE 3 U/L (12-78); ALBUMIN 2.1 g/dL (3.4-4.8); ANION GAP 8 (5-15); ASPARTATE AMINOTRANSFERASE 16 U/L (10-37); CARBON DIOXIDE 28 mmol/L (23-29); CHLORIDE 105 mmol/L (98-107); CREATININE 0.99 mg/dL (0.55-1.30); GLUCOSE 148 mg/dL (74-106); SODIUM SERUM 141 mmol/L (136-145); TOTAL BILIRUBIN 0.9 mg/dL (0.0-1.0); TOTAL PROTEIN, SERUM 5.4 g/dL (6.4-8.3); UREA NITROGEN, BLOOD 22 mg/dL (8-21)
[2023-06-06 07:56] LABS: POTASSIUM 2.8 mmol/L (3.5-5.1)
[2023-06-06] MEDS: MULTIVITS,CA,MINERALS/IRON/FA 1 TABLET PO SCH (09:00)
[2023-06-06] MEDS: CHOLECALCIFEROL (VITAMIN D3) 2,000 UNIT TABLET PO SCH (09:00)
[2023-06-06] MEDS: FUROSEMIDE 40 MG TABLET PO SCH (09:00)
[2023-06-06] MEDS: FINASTERIDE 5 MG TABLET (PROSCAR) PO SCH (09:00)
[2023-06-06] MEDS: POLYETHYLENE GLYCOL 3350, 17 GM/ POWD.PACK PO SCH ×4 (09:00→21:42)
[2023-06-06] MEDS: CYANOCOBALAMIN (VITAMIN B-12) 1,000 MCG TABLET PO SCH (09:00)
[2023-06-06] MEDS: PANTOPRAZOLE SODIUM 40 MG TAB PO SCH (09:00)
[2023-06-06] MEDS: POTASSIUM CHLORIDE 10 MEQ TAB.PRT.SR PO SCH (09:00)
[2023-06-06] MEDS: GABAPENTIN 300 MG CAPSULE PO SCH ×3 (09:00→21:43)
[2023-06-06] MEDS: MECLIZINE HCL 25 MG TABLET (ANITVERT) PO SCH ×3 (09:00→21:44)
[2023-06-06] MEDS: LUBIPROSTONE 24 MCG CAPSULE PO SCH ×2 (09:00→21:43)
[2023-06-06] MEDS: OMEGA-3/DHA/EPA/FISH OIL 1 GM CAPSULE PO SCH ×2 (09:00→21:44)
[2023-06-06] MEDS: DONEPEZIL PO SCH ×2 (09:00→21:46)
[2023-06-06] MEDS: MEMANTINE PO SCH ×2 (09:00→21:46)
[2023-06-06] MEDS: TAMSULOSIN HCL 0.4 MG CAP PO SCH (09:00)
[2023-06-06] MEDS ORDERED: MIDAZOLAM HCL 5 MG/5 ML VIAL ONE (09:11)
[2023-06-06] MEDS ORDERED: MEPERIDINE 100 MG INJ. 100 MG/ML VIAL ONE (09:11)
[2023-06-06] MEDS: NORMAL SALINE 5 ML DISP.SYRIN IVF SCH ×3 (10:09→22:11)
[2023-06-06] MEDS: PEG 400/HYPROMELLOSE/GLYCERIN 15 ML DROPS OP SCH (10:11)
[2023-06-06] MEDS: cycloSPORINE 0.05%, 0.4 ML OPHTHALMIC EMULSION DROPERETTE OP SCH ×2 (10:11→21:44)
[2023-06-06] MEDS ORDERED: POTASSIUM CHLORIDE 40 MEQ, LIDOCAINE JECT 2% PF 100 MG 50 MG in NS 250 ML IV ONE (11:00)
[2023-06-06] MEDS ORDERED: HYDROCORTISONE ACETATE 1 SUPP (ANUSOL HC) RC ONE (13:00)
[2023-06-06] MEDS: SOD FERRIC GLUC COMPLEX/SUC 125 MG in NS 100 ML IV SCH (16:47)
[2023-06-06] MEDS: HYDROCORTISONE ACETATE 1 SUPP (ANUSOL HC) RC SCH (21:42)
[2023-06-06] MEDS: SIMVASTATIN 40 MG TABLET PO SCH (21:42)
[2023-06-06] MEDS: QUEtiapine FUMARATE 25 MG TABLET PO SCH (21:43)
[2023-06-07] VITALS (9 sets, daily range): BP systolic 102–123; PULSE 74–89; RESP 15–19; TEMP 98–99.1; O2SAT 91–97
[2023-06-07 04:38] LABS: BASOPHILS % (AUTO) 0.1 % (0.0-2.0); EOSINOPHILS % (AUTO) 0.4 % (0.0-4.0); HEMATOCRIT 27.9 % (36-54); HEMOGLOBIN 8.6 g/dL (14.0-18.0); LYMPHOCYTES # (AUTO) 1.1 K/uL (1.0-5.5); LYMPHOCYTES % (AUTO) 10.4 % (20.5-51.5); MEAN CORPUSCULAR HEMOGLOBIN 24 pg (27-31); MEAN CORPUSCULAR HGB CONC 31 % (32-36); MEAN CORPUSCULAR VOLUME 79 fL (79.0-98.0); MONOCYTES # (AUTO) 0.9 K/uL (0.0-1.0); MONOCYTES % (AUTO) 8.7 % (1.7-9.3); NEUTROPHILS # (AUTO) 8.1 K/uL (1.8-7.7); NEUTROPHILS % (AUTO) 80.4 % (40.0-70.0); PLATELET COUNT (AUTO) 90 K/uL (130-430); RED BLOOD CELL COUNT(AUTO) 3.54 MIL/uL (4.2-6.2); RED CELL DISTRIBUTION WIDTH 23.2 % (9.0-15.0); WHITE BLOOD COUNT (AUTO) 10.1 K/uL (4.8-10.8)
[2023-06-07 05:01] LABS: ERYTHROCYTE SEDIMENTATION RATE 40 MM/HR (0-15)
[2023-06-07 05:15] LABS: ANION GAP 4 (5-15); CALCIUM 8.3 mg/dL (8.4-11.0); CARBON DIOXIDE 29 mmol/L (23-29); CHLORIDE 108 mmol/L (98-107); CREATININE 0.89 mg/dL (0.55-1.30); GLUCOSE 143 mg/dL (74-106); POTASSIUM 3.6 mmol/L (3.5-5.1); SODIUM SERUM 141 mmol/L (136-145); UREA NITROGEN, BLOOD 25 mg/dL (8-21)
[2023-06-07] MEDS: NORMAL SALINE 5 ML DISP.SYRIN IVF SCH ×3 (05:40→23:41)
[2023-06-07] MEDS: LUBIPROSTONE 24 MCG CAPSULE PO SCH ×2 (08:31→21:10)
[2023-06-07] MEDS: FINASTERIDE 5 MG TABLET (PROSCAR) PO SCH (08:31)
[2023-06-07] MEDS: POTASSIUM CHLORIDE 10 MEQ TAB.PRT.SR PO SCH (08:31)
[2023-06-07] MEDS: PANTOPRAZOLE SODIUM 40 MG TAB PO SCH (08:31)
[2023-06-07] MEDS: CHOLECALCIFEROL (VITAMIN D3) 2,000 UNIT TABLET PO SCH (08:31)
[2023-06-07] MEDS: MECLIZINE HCL 25 MG TABLET (ANITVERT) PO SCH ×3 (08:32→21:10)
[2023-06-07] MEDS: HYDROCORTISONE ACETATE 1 SUPP (ANUSOL HC) RC SCH ×3 (08:32→21:13)
[2023-06-07] MEDS: TAMSULOSIN HCL 0.4 MG CAP PO SCH (08:32)
[2023-06-07] MEDS: POLYETHYLENE GLYCOL 3350, 17 GM/ POWD.PACK PO SCH ×5 (08:33→21:12)
[2023-06-07] MEDS: FUROSEMIDE 40 MG TABLET PO SCH (08:33)
[2023-06-07] MEDS: MULTIVITS,CA,MINERALS/IRON/FA 1 TABLET PO SCH (08:33)
[2023-06-07] MEDS: CYANOCOBALAMIN (VITAMIN B-12) 1,000 MCG TABLET PO SCH (08:33)
[2023-06-07] MEDS: OMEGA-3/DHA/EPA/FISH OIL 1 GM CAPSULE PO SCH ×2 (08:33→21:10)
[2023-06-07] MEDS: GABAPENTIN 300 MG CAPSULE PO SCH ×3 (08:33→21:10)
[2023-06-07] MEDS: PEG 400/HYPROMELLOSE/GLYCERIN 15 ML DROPS OP SCH (08:34)
[2023-06-07] MEDS: MEMANTINE PO SCH ×2 (08:37→21:12)
[2023-06-07] MEDS: DONEPEZIL PO SCH ×2 (08:37→21:12)
[2023-06-07] MEDS: cycloSPORINE 0.05%, 0.4 ML OPHTHALMIC EMULSION DROPERETTE OP SCH ×2 (10:13→21:13)
[2023-06-07] MEDS ORDERED: FERR324T11 PO (16:21)
[2023-06-07] MEDS ORDERED: ANURH RC (16:21)
[2023-06-07] MEDS: SOD FERRIC GLUC COMPLEX/SUC 125 MG in NS 100 ML IV SCH (17:12)
[2023-06-07] MEDS: QUEtiapine FUMARATE 25 MG TABLET PO SCH (21:10)
[2023-06-07] MEDS: SIMVASTATIN 40 MG TABLET PO SCH (21:10)
[2023-06-08] VITALS (11 sets, daily range): BP systolic 108–158; PULSE 44–105; RESP 16–18; TEMP 97.3–98.9; O2SAT 95–98
[2023-06-08] MEDS: NORMAL SALINE 5 ML DISP.SYRIN IVF SCH ×3 (06:05→22:51)
[2023-06-08 06:15] LABS: BASOPHILS % (AUTO) 0.1 % (0.0-2.0); EOSINOPHILS % (AUTO) 0.6 % (0.0-4.0); HEMATOCRIT 27.9 % (36-54); HEMOGLOBIN 8.7 g/dL (14.0-18.0); LYMPHOCYTES # (AUTO) 1.4 K/uL (1.0-5.5); LYMPHOCYTES % (AUTO) 17.4 % (20.5-51.5); MEAN CORPUSCULAR HEMOGLOBIN 25 pg (27-31); MEAN CORPUSCULAR HGB CONC 31 % (32-36); MEAN CORPUSCULAR VOLUME 80 fL (79.0-98.0); MONOCYTES # (AUTO) 0.8 K/uL (0.0-1.0); MONOCYTES % (AUTO) 9.8 % (1.7-9.3); NEUTROPHILS # (AUTO) 5.8 K/uL (1.8-7.7); NEUTROPHILS % (AUTO) 72.1 % (40.0-70.0); PLATELET COUNT (AUTO) 81 K/uL (130-430); RED CELL DISTRIBUTION WIDTH 23.9 % (9.0-15.0)
[2023-06-08 06:37] LABS: ANION GAP 7 (5-15); CARBON DIOXIDE 29 mmol/L (23-29); CHLORIDE 109 mmol/L (98-107); CREATININE 0.93 mg/dL (0.55-1.30); GLUCOSE 114 mg/dL (74-106); POTASSIUM 3.4 mmol/L (3.5-5.1); SODIUM SERUM 145 mmol/L (136-145); UREA NITROGEN, BLOOD 28 mg/dL (8-21)
[2023-06-08] MEDS: DONEPEZIL PO SCH ×2 (09:00→22:49)
[2023-06-08] MEDS: MEMANTINE PO SCH ×2 (09:00→22:49)
[2023-06-08] MEDS: OMEGA-3/DHA/EPA/FISH OIL 1 GM CAPSULE PO SCH ×2 (09:28→22:49)
[2023-06-08] MEDS: GABAPENTIN 300 MG CAPSULE PO SCH ×3 (09:28→22:49)
[2023-06-08] MEDS: FINASTERIDE 5 MG TABLET (PROSCAR) PO SCH (09:28)
[2023-06-08] MEDS: MULTIVITS,CA,MINERALS/IRON/FA 1 TABLET PO SCH (09:28)
[2023-06-08] MEDS: LUBIPROSTONE 24 MCG CAPSULE PO SCH ×2 (09:29→22:48)
[2023-06-08] MEDS: MECLIZINE HCL 25 MG TABLET (ANITVERT) PO SCH ×3 (09:29→22:48)
[2023-06-08] MEDS: POTASSIUM CHLORIDE 10 MEQ TAB.PRT.SR PO SCH (09:29)
[2023-06-08] MEDS: CYANOCOBALAMIN (VITAMIN B-12) 1,000 MCG TABLET PO SCH (09:29)
[2023-06-08] MEDS: CHOLECALCIFEROL (VITAMIN D3) 2,000 UNIT TABLET PO SCH (09:29)
[2023-06-08] MEDS: TAMSULOSIN HCL 0.4 MG CAP PO SCH (09:29)
[2023-06-08] MEDS: POLYETHYLENE GLYCOL 3350, 17 GM/ POWD.PACK PO SCH ×4 (09:30→22:49)
[2023-06-08] MEDS: PANTOPRAZOLE SODIUM 40 MG TAB PO SCH (09:30)
[2023-06-08] MEDS: FUROSEMIDE 40 MG TABLET PO SCH (09:30)
[2023-06-08] MEDS: PEG 400/HYPROMELLOSE/GLYCERIN 15 ML DROPS OP SCH (09:32)
[2023-06-08] MEDS: cycloSPORINE 0.05%, 0.4 ML OPHTHALMIC EMULSION DROPERETTE OP SCH ×2 (09:32→22:48)
[2023-06-08] MEDS: HYDROCORTISONE ACETATE 1 SUPP (ANUSOL HC) RC SCH ×2 (09:33→22:51)
[2023-06-08] MEDS: SOD FERRIC GLUC COMPLEX/SUC 125 MG in NS 100 ML IV SCH (18:44)
[2023-06-08] MEDS: QUEtiapine FUMARATE 25 MG TABLET PO SCH (22:50)
[2023-06-08] MEDS: SIMVASTATIN 40 MG TABLET PO SCH (22:50)
[2023-06-09] VITALS: BP_SYST 122; PULSE 101; RESP 16; TEMP 97.2; O2SAT 96
[2023-06-09 05:31] LABS: BASOPHILS % (AUTO) 0.2 % (0.0-2.0); EOSINOPHILS # (AUTO) 0.1 K/uL (0.0-0.4); EOSINOPHILS % (AUTO) 0.8 % (0.0-4.0); HEMOGLOBIN 8.8 g/dL (14.0-18.0); LYMPHOCYTES # (AUTO) 1.5 K/uL (1.0-5.5); LYMPHOCYTES % (AUTO) 17.9 % (20.5-51.5); MEAN CORPUSCULAR HEMOGLOBIN 25 pg (27-31); MEAN CORPUSCULAR HGB CONC 32 % (32-36); MEAN CORPUSCULAR VOLUME 80 fL (79.0-98.0); MONOCYTES # (AUTO) 0.7 K/uL (0.0-1.0); MONOCYTES % (AUTO) 8.3 % (1.7-9.3); NEUTROPHILS % (AUTO) 72.8 % (40.0-70.0); PLATELET COUNT (AUTO) 90 K/uL (130-430); RED BLOOD CELL COUNT(AUTO) 3.51 MIL/uL (4.2-6.2); WHITE BLOOD COUNT (AUTO) 8.2 K/uL (4.8-10.8)
[2023-06-09] MEDS: NORMAL SALINE 5 ML DISP.SYRIN IVF SCH ×3 (05:50→21:15)
[2023-06-09 06:23] LABS: ALANINE AMINOTRANSFERASE 14 U/L (12-78); ALBUMIN 1.8 g/dL (3.4-4.8); ANION GAP 7 (5-15); ASPARTATE AMINOTRANSFERASE 40 U/L (10-37); CALCIUM 7.8 mg/dL (8.4-11.0); CARBON DIOXIDE 29 mmol/L (23-29); CHLORIDE 110 mmol/L (98-107); GLUCOSE 115 mg/dL (74-106); POTASSIUM 3.5 mmol/L (3.5-5.1); SODIUM SERUM 146 mmol/L (136-145); TOTAL BILIRUBIN 0.6 mg/dL (0.0-1.0); TOTAL PROTEIN, SERUM 5.2 g/dL (6.4-8.3); UREA NITROGEN, BLOOD 27 mg/dL (8-21)
[2023-06-09 08:30] VITALS: BP_SYST 119; PULSE 89; RESP 18; TEMP 98.9; O2SAT 97
[2023-06-09] MEDS: OMEGA-3/DHA/EPA/FISH OIL 1 GM CAPSULE PO SCH ×2 (09:17→21:12)
[2023-06-09] MEDS: CHOLECALCIFEROL (VITAMIN D3) 2,000 UNIT TABLET PO SCH (09:17)
[2023-06-09] MEDS: GABAPENTIN 300 MG CAPSULE PO SCH (09:17)
[2023-06-09] MEDS: FINASTERIDE 5 MG TABLET (PROSCAR) PO SCH (09:17)
[2023-06-09] MEDS: LUBIPROSTONE 24 MCG CAPSULE PO SCH ×2 (09:17→21:12)
[2023-06-09] MEDS: POLYETHYLENE GLYCOL 3350, 17 GM/ POWD.PACK PO SCH ×4 (09:17→21:13)
[2023-06-09] MEDS: POTASSIUM CHLORIDE 10 MEQ TAB.PRT.SR PO SCH (09:17)
[2023-06-09] MEDS: TAMSULOSIN HCL 0.4 MG CAP PO SCH (09:17)
[2023-06-09] MEDS: CYANOCOBALAMIN (VITAMIN B-12) 1,000 MCG TABLET PO SCH (09:17)
[2023-06-09] MEDS: PANTOPRAZOLE SODIUM 40 MG TAB PO SCH (09:17)
[2023-06-09] MEDS: MULTIVITS,CA,MINERALS/IRON/FA 1 TABLET PO SCH (09:18)
[2023-06-09] MEDS: MECLIZINE HCL 25 MG TABLET (ANITVERT) PO SCH (09:18)
[2023-06-09] MEDS: FUROSEMIDE 40 MG TABLET PO SCH (09:18)
[2023-06-09] MEDS: cycloSPORINE 0.05%, 0.4 ML OPHTHALMIC EMULSION DROPERETTE OP SCH ×2 (09:19→21:15)
[2023-06-09] MEDS: PEG 400/HYPROMELLOSE/GLYCERIN 15 ML DROPS OP SCH (09:19)
[2023-06-09] MEDS: DONEPEZIL PO SCH ×2 (09:20→21:13)
[2023-06-09] MEDS: HYDROCORTISONE ACETATE 1 SUPP (ANUSOL HC) RC SCH (09:20)
[2023-06-09] MEDS: MEMANTINE PO SCH ×2 (09:20→21:13)
[2023-06-09 10:41] VITALS: O2SAT 97
[2023-06-09 11:30] VITALS: BP_SYST 96; PULSE 94; RESP 19; TEMP 99; O2SAT 95
[2023-06-09 14:01] LABS: TOTAL IRON BIND. CAPACITY 216 ug/dL (250-450)
[2023-06-09] MEDS: SOD FERRIC GLUC COMPLEX/SUC 125 MG in NS 100 ML IV SCH (17:10)
[2023-06-09 17:22] VITALS: BP_SYST 123; PULSE 87; RESP 18; TEMP 98.6; O2SAT 94
[2023-06-09 17:46] LABS: BLOOD, URINE NEGATIVE (NEGATIVE); CLARITY/URINE CLEAR (CLEAR); GLUCOSE,URINE NEGATIVE (NEGATIVE); KETONES,URINE TRACE (NEGATIVE); LEUKOCYTE ESTERASE ,URINE NEGATIVE (NEGATIVE); NITRITE, URINE NEGATIVE (NEGATIVE); PROTEIN URINE TRACE (NEGATIVE)
[2023-06-09 18:00] LABS: COLOR,URINE AMBER (YELLOW)
[2023-06-09 18:01] LABS: BILIRUBIN,URINE 1+ (NEGATIVE)
[2023-06-09 18:02] LABS: BACTERIA,URINE FEW /HPF (None Seen); RBC,URINE 0-3 /HPF (0-3); WBC,URINE 0-3 /HPF (0-3)
[2023-06-09 18:03] LABS: MUCUS,URINE None Seen /LPF (None Seen)
[2023-06-09 20:00] VITALS: BP_SYST 127; PULSE 94; RESP 18; TEMP 97.1; O2SAT 95; O2SAT 96
[2023-06-09] MEDS: QUEtiapine FUMARATE 25 MG TABLET PO SCH (21:12)
[2023-06-10] VITALS: BP_SYST 99; PULSE 89; RESP 18; TEMP 97.1; O2SAT 95
[2023-06-10] MEDS: NORMAL SALINE 5 ML DISP.SYRIN IVF SCH ×2 (05:07→14:00)
[2023-06-10 07:15] LABS: BASOPHILS % (AUTO) 0.3 % (0.0-2.0); EOSINOPHILS # (AUTO) 0.1 K/uL (0.0-0.4); EOSINOPHILS % (AUTO) 0.7 % (0.0-4.0); HEMATOCRIT 30.1 % (36-54); HEMOGLOBIN 9.3 g/dL (14.0-18.0); LYMPHOCYTES # (AUTO) 1.3 K/uL (1.0-5.5); LYMPHOCYTES % (AUTO) 14.3 % (20.5-51.5); MEAN CORPUSCULAR HEMOGLOBIN 25 pg (27-31); MEAN CORPUSCULAR HGB CONC 31 % (32-36); MEAN CORPUSCULAR VOLUME 82 fL (79.0-98.0); MONOCYTES # (AUTO) 0.7 K/uL (0.0-1.0); MONOCYTES % (AUTO) 8.1 % (1.7-9.3); NEUTROPHILS % (AUTO) 76.6 % (40.0-70.0); PLATELET COUNT (AUTO) 96 K/uL (130-430); RED BLOOD CELL COUNT(AUTO) 3.69 MIL/uL (4.2-6.2); RED CELL DISTRIBUTION WIDTH 26.1 % (9.0-15.0); WHITE BLOOD COUNT (AUTO) 9.1 K/uL (4.8-10.8)
[2023-06-10 08:30] VITALS: BP_SYST 115; PULSE 89; RESP 17; TEMP 97.8; O2SAT 96
[2023-06-10] MEDS: TAMSULOSIN HCL 0.4 MG CAP PO SCH (08:40)
[2023-06-10] MEDS: CYANOCOBALAMIN (VITAMIN B-12) 1,000 MCG TABLET PO SCH (08:40)
[2023-06-10] MEDS: OMEGA-3/DHA/EPA/FISH OIL 1 GM CAPSULE PO SCH (08:40)
[2023-06-10] MEDS: LUBIPROSTONE 24 MCG CAPSULE PO SCH (08:40)
[2023-06-10] MEDS: PANTOPRAZOLE SODIUM 40 MG TAB PO SCH (08:40)
[2023-06-10] MEDS: CHOLECALCIFEROL (VITAMIN D3) 2,000 UNIT TABLET PO SCH (08:40)
[2023-06-10] MEDS: POTASSIUM CHLORIDE 10 MEQ TAB.PRT.SR PO SCH (08:41)
[2023-06-10] MEDS: FUROSEMIDE 40 MG TABLET PO SCH (08:41)
[2023-06-10] MEDS: MULTIVITS,CA,MINERALS/IRON/FA 1 TABLET PO SCH (08:41)
[2023-06-10] MEDS: FINASTERIDE 5 MG TABLET (PROSCAR) PO SCH (08:41)
[2023-06-10] MEDS: PEG 400/HYPROMELLOSE/GLYCERIN 15 ML DROPS OP SCH (08:42)
[2023-06-10] MEDS: MEMANTINE PO SCH (08:42)
[2023-06-10] MEDS: DONEPEZIL PO SCH (08:42)
[2023-06-10] MEDS: POLYETHYLENE GLYCOL 3350, 17 GM/ POWD.PACK PO SCH ×2 (08:43→13:00)
[2023-06-10] MEDS: cycloSPORINE 0.05%, 0.4 ML OPHTHALMIC EMULSION DROPERETTE OP SCH (08:43)
[2023-06-10 09:57] VITALS: O2SAT 96
[2023-06-10 11:39] VITALS: BP_SYST 114; PULSE 85; RESP 17; TEMP 97.8; O2SAT 94
[2023-06-10 13:32] VITALS: BP_SYST 115; PULSE 89; RESP 17; TEMP 97.8; O2SAT 96
[2023-06-10 16:52] VITALS: BP_SYST 124; PULSE 85; RESP 19; TEMP 98.4; O2SAT 92
[2023-06-11] MEDS ORDERED: EPOETIN ALFA 4,000 UNITS/ML VIAL SUBCUT SCH (17:00)
== END 2023-06-10 18:52 | DRG 393 ==
LOC: SED 14:23 → STU 16:31 → SMU 06-06 11:09 → STU 06-06 15:58 → SMU 06-07 04:38
PROVIDERS: ADMIT Specialist; ATTEND Specialist
PROC: 30233N1 Transfusion of Nonautologous Red Blood Cells into Peripheral Vein, Percutaneous Approach (ICD-10-PCS; 2023-06-01)
PROC: 0DBK8ZZ Excision of Ascending Colon, Via Natural or Artificial Opening Endoscopic (ICD-10-PCS; 2023-06-06)
PROC: 0DBL8ZZ Excision of Transverse Colon, Via Natural or Artificial Opening Endoscopic (ICD-10-PCS; 2023-06-06)
PROC: 0DB98ZX Excision of Duodenum, Via Natural or Artificial Opening Endoscopic, Diagnostic (ICD-10-PCS; principal; 2023-06-06 11:45)
PROC: 0DB78ZX Excision of Stomach, Pylorus, Via Natural or Artificial Opening Endoscopic, Diagnostic (ICD-10-PCS; 2023-06-06 11:45)
PROC: 0DB68ZX Excision of Stomach, Via Natural or Artificial Opening Endoscopic, Diagnostic (ICD-10-PCS; 2023-06-06 11:45)
PROC: 5A09357 Assistance with Respiratory Ventilation, Less than 24 Consecutive Hours, Continuous Positive Airway Pressure (ICD-10-PCS; 2023-06-07)
DX: K64.8 Other hemorrhoids (principal); E43 Unspecified severe protein-calorie malnutrition; I21.A1 Myocardial infarction type 2; I42.9 Cardiomyopathy, unspecified; D50.9 Iron deficiency anemia, unspecified; K29.70 Gastritis, unspecified, without bleeding; D69.6 Thrombocytopenia, unspecified; E87.6 Hypokalemia; E83.51 Hypocalcemia; E78.5 Hyperlipidemia, unspecified; E11.65 Type 2 diabetes mellitus with hyperglycemia; E11.40 Type 2 diabetes mellitus with diabetic neuropathy, unspecified; I25.10 Atherosclerotic heart disease of native coronary artery without angina pectoris; I11.0 Hypertensive heart disease with heart failure; K80.20 Calculus of gallbladder without cholecystitis without obstruction; K63.5 Polyp of colon; N40.0 Benign prostatic hyperplasia without lower urinary tract symptoms; I50.9 Heart failure, unspecified; K21.9 Gastro-esophageal reflux disease without esophagitis; R79.1 Abnormal coagulation profile; G30.9 Alzheimer's disease, unspecified; F02.80 Dementia in other diseases classified elsewhere, unspecified severity, without behavioral disturbance, psychotic disturbance, mood disturbance, and anxiety; Z95.5 Presence of coronary angioplasty implant and graft; Z95.1 Presence of aortocoronary bypass graft; Z86.73 Personal history of transient ischemic attack (TIA), and cerebral infarction without residual deficits; Z79.01 Long term (current) use of anticoagulants; Z68.33 Body mass index [BMI] 33.0-33.9, adult; Z79.899 Other long term (current) drug therapy
CPT/HCPCS: 36415; 43239; 45380; 45385; 70450-TC; 71045; 76376; 76700-TC; 80048; 80053; 81000; 81003; 82009; 82103; 82272; 82550; 82607; 82728; 82746; 82962; 83010; 83516; 83540; 83550; 83605; 83735; 84100; 84439; 84443; 84484; 85025; 85044; 85610-TC; 85651-TC; 85730-TC; 86038; 86704; 86706; 86708; 86803; 86886; 86900; 86901; 86920; 87081; 87086; 87340; 88305; 88312; 88313; 93005; 93306; 93970; 94660; 94760; 97116-GP; 97163-GP; 97530-GP; 99291; G0378; J2175; J2250; J2916; J3480; J7030; J7042; J7050; J8597; P9021